=== PATIENT | female | born 2000 | race Caucasian/White ===

== ENCOUNTER 2021-01-12 11:17 | Emergency (ER) | payer OTHER, SELFPAY ==
[2021-01-12 11:21] VITALS: BP 105/64; PULSE 72; RESP 12; TEMP 36.8; O2SAT 98
--- NOTE | 2021-01-12 11:41 | ED.URI ---
HPI - URI/Sore Throat General Chief Complaint: Upper Respiratory Infection Stated Complaint: ear pain/mills Source: patient and RN notes reviewed Mode of arrival: ambulatory History of Present Illness HPI Narrative: This is a 20-year-old female presented to our urgent care with complaints of left ear pain. Patient notes that she does have a history having ear infections as a youth she had ear tubes x2 which are now displaced. She notes that she has had drainage to clear drainage to that ear along with body aches and sinus migraine no fevers. The patient denies SOB, CP, palpitation, extremity numbness, lightheadedness, dizziness, constipation, diarrhea, chills, or fever. She did take Tylenol at home to relieve her pain Related Data Home Medications Medication Instructions Recorded Confirmed Depo-Provera 02/19/19 sertraline mg 01/12/21 Allergies Allergy/AdvReac Type Severity Reaction Status Date / Time No Known Allergies Allergy Unknown Unverified 01/16/19 11:03 Review of Systems Review of Systems: A 14 organ system Review of Systems was performed and pertinent positives included in the HPI, otherwise remaining ROS is negative. [facility] Family History Family History (Updated 01/12/21 @ 11:42 by LAURIE LunsfordC) Other Family history non-contributory Exam Narrative: GENERAL: This is a well-nourished, well-developed patient, in no apparent distress. HEAD: normocephalic, atraumatic. EYES: PERRL. Sclera clear/white. Vision is grossly intact. EARS: External ears normal, left auditory canals with edema erythematous and without drainage, NOSE: External nose normal with no obvious nasal discharge, nares without redness, no rhinorrhea. THROAT: Mucous membranes moist, posterior pharynx with edema erythematous NECK: Neck supple, non-tender without lymphadenopathy, masses or thyromegaly. CARDIOVASCULAR: Regular rate and rhythm without murmurs, gallops, or rubs. RESPIRATORY: Clear to auscultation. Breath sounds equal bilaterally. No wheezes, rales, or rhonchi. GASTROINTESTINAL: Abdomen soft, non-tender, nondistended. Bowel sounds are active. No hepato-splenomegaly, or palpable masses. No guarding. SKIN: warm, intact with no suspicious lesions or rash, good texture and turgor. NEURO: awake, alert, and oriented to person, place and time. There were no obvious focal neurologic abnormalities. Steady gait EXTREMITIES: Normal range of motion. No edema. No calf tenderness. Negative Homans sign bilaterally. BACK: Nontender without deformity or crepitance. No flank tenderness. Course Vital Signs Vital signs: Vital Signs Temperature 98.2 F 01/12/21 11:21 Pulse Rate 72 01/12/21 11:21 Respiratory Rate 12 01/12/21 11:21 Blood Pressure 105/64 01/12/21 11:21 Pulse Oximetry 98 01/12/21 11:21 Temperature 98.2 F 01/12/21 11:21 Pulse Rate 72 01/12/21 11:21 Respiratory Rate 12 01/12/21 11:21 Blood Pressure 105/64 01/12/21 11:21 Pulse Oximetry 98 01/12/21 11:21 MDM - URI/Sore Throat Differential Diagnosis Differential diagnosis: Likely upper respiratory infection, otitis media, sinusitis, bronchitis, pharyngitis and other (Strep) Lab Data Labs: Strep Screen Positive Group A Strep *(Reference Range: Negative)* Discharge Plan Discharge Clinical Impression: Otitis media Qualifiers: Otitis media type: unspecified Chronicity: acute Qualified Code(s): H66.90 - Otitis media, unspecified, unspecified ear Patient Disposition: Home, Self-Care Condition: Stable Instructions: Antibiotic Form, Strep Throat (ED), Ear Infection (ED) Additional Instructions: -Eat things that are easy to swallow, like tea or soup, or popsicles to suck on. -Oral rinses such as: Salt water gargles and/or may use topical anesthetic (eg. Chloraseptic spray) or lozenges to relieve dryness or throat pain. -Take tylenol and ibuprofen as needed for pain and
== END 2021-01-12 12:11 | disposition home or self-care (01) ==
PROVIDERS: Emergency Provider Nurse Practitioner
DX: H66.92 Otitis media, unspecified, left ear (principal)
CPT/HCPCS: 87880; 99213; G0463